=== PATIENT | male | born 1935 | race Caucasian/White ===

== ENCOUNTER 2016-11-22 14:16 | Emergency (ER) | payer MEDICARE, OTHER ==
[2016-11-22] MEDS ORDERED: HYDROcodone/Acetaminophen 10/325 mg Tablet ONE (14:50)
[2016-11-22] MEDS ORDERED: Ondansetron HCl/PF 4 MG/2 ML Vial ONE (14:50)
[2016-11-22 15:19] LABS: #Basophils 0.1 thou/uL (0.0-0.2); #Lymphocytes 0.9 thou/uL (1.20-3.40); #Monocytes 0.5 thou/uL (0.11-0.59); #Neutrophils 7.3 thou/uL (1.40-6.50); %Basophils 0.9 % (0.0-1.0); %Eosinophils 0.3 % (0.0-10.0); %Monocytes 5.4 % (0.0-10.0); %Neutrophils 83.5 % (42.0-75.0); Hemoglobin 15.8 g/dL (14.0-18.0); Mean Corpuscular HGB CONC 32.9 g/dL (32.0-36.0); Mean Corpuscular Volume 94.3 fl (80.0-94.0); Mean Platelet Volume 7.1 fL (7.4-10.4); Platelet Count 145 thou/uL (130-400); RBC Distribution Width 11.8 % (11.5-14.5); Red Blood Cell (RBC) Count 5.09 mill/uL (4.70-6.10); White Blood Cell (WBC) Count 8.7 thou/uL (4.8-10.8)
[2016-11-22 15:21] LABS: PTT 32.9 SEC (22.9-36.1); Prothrombin Time 13.5 SEC (12.0-14.7)
[2016-11-22] MEDS ORDERED: methylPREDNISolone Sod Succ/PF 125 MG/2 ML VIAL ONE (15:25)
[2016-11-22 15:30] LABS: Anion Gap 16 mmol/L (10-20); BUN (Urea Nitrogen) 15 mg/dL (8.4-25.7); Calc. Creatinine Clearance 0 mL/min (70-130); Carbon Dioxide 25 mmol/L (23-31); Chloride 107 mmol/L (98-107); Estimated GFR-MDRD 80; Glucose 90 mg/dL (83-110); Potassium 4.2 mmol/L (3.5-5.1); Sodium 144 mmol/L (136-145)
--- NOTE | 2016-11-22 15:30 | CT ---
NONCONTRAST ENHANCED CT BRAIN: Date: 11/22/16 HISTORY: Headache. FINDINGS: Noncontrast enhanced CT images of the brain demonstrate an area of hyperdensity involving the right anterolateral thalamus extending into the right basal ganglion and right temporal lobe. This appears to be concerning for possible intra-axial process. There may be associated mass effect. This may re present an intra-axial partially calcified mass. Other possibilities could include, but less likely, an extra-axial calcified mass or less likely intra-axial hemorrhage. There is approximately 5.3 cm of midline shift. This may represent a possible infiltrative brain neoplasm such as oligodendrogliom a with associated calcifications. I do recommend further evaluation using pre and postcontrast enhan suly MRI of brain. Incidentally noted left ectatic basilar artery also seen. IMPRESSION: Area of abnormal density in the right supratentorial brain which may represent calcified neoplasm. L ess likely possible intracranial hemorrhage. I do recommend correlation with pre and postcontrast en hanced MRI of the brain. CODE T. POS: BENEDICTO
== END 2016-11-22 16:36 | disposition short-term general hospital (02) ==
LOC: MADERS 14:16
DX: G93.89 Other specified disorders of brain (principal); E78.5 Hyperlipidemia, unspecified; E78.00 Pure hypercholesterolemia, unspecified; I10 Essential (primary) hypertension; Z79.82 Long term (current) use of aspirin; Z79.899 Other long term (current) drug therapy
CPT/HCPCS: 70450; 80048; 85025; 85610; 85730; 96374; 96375; J2405; J2930